=== PATIENT | female | born 1970 | race Hispanic/Latino ===

== ENCOUNTER 2017-09-16 20:02 | Emergency (ER) | payer SELFPAY ==
[2017-09-16 20:42] VITALS: BP 182/86
[2017-09-16 21:07] LABS: Basophils # (Auto) 0.1 K/mm3 (0.0-0.1); Basophils % (Auto) 0.9 % (0.0-1.8); Eosinophils # (Auto) 0.2 K/mm3 (0.0-0.4); Eosinophils % (Auto) 2.5 % (0.0-4.3); Hematocrit 40.7 % (30.3-42.9); Lymphocytes # (Auto) 2.6 K/mm3 (1.2-5.4); Mean Corpuscular HGB Conc 32 % (30-34); Mean Corpuscular Hemoglobin 27 pg (28-32); Mean Corpuscular Volume 85 fl (79-97); Monocytes # (Auto) 0.7 K/mm3 (0.0-0.8); Monocytes % (Auto) 9.1 % (0.0-7.3); Platelet Count 278 K/mm3 (140-440); Red Blood Count 4.78 M/mm3 (3.65-5.03); Red Cell Distribution Width 15.7 % (13.2-15.2)
[2017-09-16 21:19] LABS: INR 0.92 (0.87-1.13)
[2017-09-16 21:20] LABS: Partial Thromboplastin Time 30.1 Sec. (24.2-36.6)
[2017-09-16 21:22] LABS: BUN/Creatinine Ratio 16; Blood Urea Nitrogen 11 mg/dL (7-17); Calcium 8.6 mg/dL (8.4-10.2); Hemolysis Index 12
--- NOTE | 2017-09-16 22:04 | Cat Scan Report ---
FINAL REPORT PROCEDURE: CT HEAD/BRAIN WO CON TECHNIQUE: Computerized tomography of the head was performed without contrast material. HISTORY: neuro deficits < 6hrs or sx present upon awakening COMPARISON: No prior studies are available for comparison. FINDINGS: Skull and scalp: Normal. Paranasal sinuses: Normal. Ventricles and subarachnoid spaces: Normal. Cerebrum: No evidence of hemorrhage, acute infarction or mass. There is a tiny lacunar defect in the left frontal subcortical white matter. This could be an old lacunar infarct. Cerebellum and brainstem: No evidence of hemorrhage, acute infarction or mass. Vasculature: Normal. Comments: None. IMPRESSION: There is no evidence of acute infarction. There is no hemorrhage, edema, mass, mass effect or midline shift. There is a tiny lacunar defect in the left frontal subcortical white matter. This could be an old lacunar infarct.
== END 2017-09-16 21:50 | disposition left against medical advice (07) ==
LOC: ED 20:02
DX: R07.9 Chest pain, unspecified (principal); I10 Essential (primary) hypertension; Z53.21 Procedure and treatment not carried out due to patient leaving prior to being seen by health care provider
CPT/HCPCS: 36415; 70450; 80048; 84484; 85025; 85610; 85670; 85730; 93005; 93010

== ENCOUNTER 2018-01-21 08:58 | Emergency (ER) | payer OTHER ==
--- NOTE | 2018-01-21 09:54 | XRay Report ---
Left foot 3 views: History: Trauma. Pain Findings: Generalized osteopenia. No fracture or dislocation. No periosteal reaction. Spurs calcaneum. Impression: No evidence of acute fracture.
--- NOTE | 2018-01-21 10:14 | Emergency Department Report ---
ED Lower Extremity HPI - General Chief Complaint: Extremity Injury, Lower Stated Complaint: L FOOT PAIN Time Seen by Provider: 01/21/18 10:13 Source: patient Mode of arrival: Wheelchair Limitations: No Limitations - History of Present Illness Initial Comments: Assessment 47-year-old female that presents with left foot pain status post fall last night. Patient reports taken 2 doses of atenolol yesterday and to help bring her blood pressure down. Patient reports the left foot swelling and pain shortly after fall. She is having difficulty upon pressure to the left lower extremity. Around 2 AM she applied a compression stocking which helped swelling. Reports pain is 10 out of 10 with weightbearing and touch. Denies numbness or tingling, deformity, erythema, and laceration. MD Complaint: foot injury (left foot) -: Last night Injury: Foot: Left Type of Injury: hyperflexion Place: home Severity: severe Severity scale (0 -10): 10 Improves With: cold therapy, immobilization Worsens With: weight bearing, movement, palpation Context: fall Associated Symptoms: swelling, unable to bear weight. denies: snap/pop sensation, numbness, tingling, able to partially bear weight Treatments Prior to Arrival: cold therapy, bandage - Related Data Home Medications Medication Instructions Recorded Confirmed Last Taken Atenolol [Tenormin] mg PO DAILY 01/08/16 Unknown Gabapentin [Neurontin] 300 mg PO BID 01/08/16 01/08/16 01/08/16 clonazePAM 1 mg PO BID 01/08/16 01/08/16 01/08/16 traZODone [Desyrel] 150 mg PO DAILY 01/08/16 01/08/16 01/08/16 Previous Rx's Medication Instructions Recorded Last Taken Type oxyCODONE /ACETAMINOPHEN [Percocet 1 tab PO Q4H PRN #30 tablet 09/11/15 Unknown Rx 5/325 mg] Cyclobenzaprine HCl [Flexeril 5 MG 5 mg PO TID PRN #15 tab 01/21/18 Unknown Rx TAB] Ibuprofen [Motrin 800 MG tab] 800 mg PO Q8HR PRN #20 tablet 01/21/18 Unknown Rx Allergies Allergy/AdvReac Type Severity Reaction Status Date / Time duloxetine HCl Allergy Intermediate Shortness Verified 09/11/15 14:30 [From Cymbalta] of Breath pregabalin [From Lyrica] Allergy Shortness Verified 01/08/16 14:19 of Breath ED Review of Systems ROS: Stated complaint: L FOOT PAIN Other details as noted in HPI Constitutional: denies: chills, fever Respiratory: denies: cough, shortness of breath, wheezing Cardiovascular: denies: chest pain, palpitations, syncope Gastrointestinal: denies: abdominal pain, nausea, diarrhea Musculoskeletal: joint swelling (left foot), arthralgia (left foot). denies: back pain Skin: denies: rash, lesions Neurological: denies: headache, weakness, numbness, paresthesias Psychiatric: denies: anxiety, depression ED Past Medical Hx - Past Medical History Hx Hypertension: Yes Hx Diabetes: No Hx Seizures: No Hx Psychiatric Treatment: Yes (Anxiety, depression) Hx Asthma: Yes (stable- last inhaler use 2 months ago) Additional medical history: lupus - Surgical History Hx Cholecystectomy: Yes Additional Surgical History: back surgery x2. ovarian cyst - Social History Smoking Status: Never Smoker Substance Use Type: None - Medications Home Medications: Home Medications Medication Instructions Recorded Confirmed Last Taken Type oxyCODONE /ACETAMINOPHEN [Percocet 1 tab PO Q4H PRN #30 tablet 09/11/15 Unknown Rx 5/325 mg] Atenolol [Tenormin] mg PO DAILY 01/08/16 Unknown History Gabapentin [Neurontin] 300 mg PO BID 01/08/16 01/08/16 01/08/16 History clonazePAM 1 mg PO BID 01/08/16 01/08/16 01/08/16 History traZODone [Desyrel] 150 mg PO DAILY 01/08/16 01/08/16 01/08/16 History Cyclobenzaprine HCl [Flexeril 5 MG 5 mg PO TID PRN #15 tab 01/21/18 Unknown Rx TAB] Ibuprofen [Motrin 800 MG tab] 800 mg PO Q8HR PRN #20 tablet 01/21/18 Unknown Rx ED Physical Exam - General Limitations: No Limitations General appearance: alert, in no apparent distress - Respiratory Respiratory exam: Present: normal lung sounds bilaterally. Absent: respiratory distress, wheezes, rales, rhonchi, stridor, accessory muscle use - Cardiovascular Cardiovascular Exam: Present: regular rate, normal rhythm, normal heart sounds. Absent: systolic murmur, diastolic murmur, rubs, gallop - GI/Abdominal GI/Abdominal exam: Present: soft, normal bowel sounds. Absent: organomegaly, mass - Expanded Lower Extremity Exam Left Hip exam: Present: normal inspection, full ROM Upper Leg exam: Present: normal inspection, full ROM Knee exam: Present: normal inspection, full ROM Lower Leg exam: Present: normal inspection, full ROM Ankle exam: Present: normal inspection, full ROM Foot/Toe exam: Present: tenderness (tenderness and the fourth and fifth [employer], no swelling or erythema). Absent: full ROM (unable to tolerate active or passive range of motion), laceration, ecchymosis, deformity, crepidus, dislocation, erythema, puncture wound, foreign body, tenderness at base of 5th metatarsal Neuro vascular tendon exam: Present: no vascular compromise Gait: Positive: unable to bear weight - Neurological Exam Neurological exam: Present: alert, oriented X3 - Psychiatric Psychiatric exam: Present: normal affect, normal mood - Skin Skin exam: Present: warm, dry, intact, normal color. Absent: rash ED Course Vital Signs 01/21/18 09:09 Temperature 97.9 F Pulse Rate 81 Respiratory 16 Rate Blood Pressure 90/56 O2 Sat by Pulse 96 Oximetry ED Lower Extremity MDM - Radiology Data Radiology results: report reviewed Left foot 3 views: History: Trauma. Pain Findings: Generalized osteopenia. No fracture or dislocation. No periosteal reaction. Spurs calcaneum. Impression: No evidence of acute fracture. - Medical Decision Making This is a 47 y.o. female male presents with left foot pain. Patient was examined by me. Nontoxic-appearing. Vital stable. Given Toradol 30 mg IM once in ER. X-ray of left foot obtained and read by radiologist. No acute findings. Physical findings susceptible of muscle strain of the left foot. Apply Jerry wrap to left foot and provided crutches with education. Patient informed of results. Start ibuprofen and cyclobenzaprine for pain. Plan discussed with patient to discharge home and treat outpatient. Patient discharged home in stable condition. Follow up with PCP in 2-3 days. Critical care attestation.: If time is entered above; I have spent that time in minutes in the direct care of this critically ill patient, excluding procedure time. ED Disposition Clinical Impression: Acute pain of left foot Muscle strain of foot Qualifiers: Encounter type: initial encounter Laterality: left Qualified Code(s): S96.912A - Strain of unspecified muscle and tendon at ankle and foot level, left foot, initial encounter Disposition: - TO HOME OR SELFCARE Is pt being admited?: No Does the pt Need Aspirin: No Condition: Stable Instructions: Arthralgia (ED), Ankle Exercises (GEN), Muscle Strain (ED) Additional Instructions: Rest Use ice or heat on affected area for 20 minutes and off for 2 hours. Take pain medication as needed for pain. Don't drive or operate heavy machinery while taking muscle relaxers because they may cause drowsiness. Follow up with Primary Care Provider in 2-3 days. Prescriptions: Cyclobenzaprine HCl [Flexeril 5 MG TAB] 5 mg PO TID PRN #15 tab PRN Reason: Muscle Spasm Ibuprofen [Motrin 800 MG tab] 800 mg PO Q8HR PRN #20 tablet PRN Reason: Pain Referrals: MARIANO BREEN JR, MD [Primary Care Provider] - 3-5 Days [facility] [place] [Outside] - 3-5 Days [facility] [Outside] - 3-[address] [facility] [Outside] - 3-5 Days Time of Disposition: 11:49 Print Language: [place]
[2018-01-21] MEDS ORDERED: TORADOL IM ONE (11:33)
[2018-01-21 11:49] VITALS: BP 118/75
== END 2018-01-21 12:14 | disposition home or self-care (01) ==
LOC: ED 08:58
DX: S96.912A Strain of unspecified muscle and tendon at ankle and foot level, left foot, initial encounter (principal); I10 Essential (primary) hypertension; J45.909 Unspecified asthma, uncomplicated; Z88.8 Allergy status to other drugs, medicaments and biological substances; W18.30XA Fall on same level, unspecified, initial encounter; Y93.89 Activity, other specified; Y92.89 Other specified places as the place of occurrence of the external cause; Y99.8 Other external cause status
CPT/HCPCS: 73630; 96372; 99283; J1885